=== PATIENT | male | born 1950 | race Two or more races ===

== ENCOUNTER 2016-12-08 10:05 | Day surgery (SDC) | payer BC, OTHER ==
[~2016-12-08] VITALS: Ht 175.3 cm; Wt 88.6 kg
[2016-12-08] MEDS ORDERED: ceFAZolin 2 GM/D5W 50 ML IV BAG (J0690) As Ordered ONE (10:37)
[2016-12-08] MEDS ORDERED: LR 1,000 ML IV SCH ×2 (10:45→13:30)
[2016-12-08] MEDS ORDERED: MIDAZOLAM INJ 2 MG/2 ML VIAL (J2250) As Ordered ONE ×2 (11:02→11:59)
[2016-12-08] MEDS ORDERED: ROCURONIUM BROMIDE 50 MG/5 ML VIAL As Ordered ONE (11:59)
[2016-12-08] MEDS ORDERED: dexameTHASONE 4 MG/ML 1ML VIAL (J1100) As Ordered ONE (11:59)
[2016-12-08] MEDS ORDERED: fentaNYL 250 MCG/5 ML INJECTION (J3010) As Ordered ONE (11:59)
[2016-12-08] MEDS ORDERED: GLYCOPYRROLATE INJ 0.2 MG/ML 2 ML VIAL As Ordered ONE ×2 (11:59→12:00)
[2016-12-08] MEDS ORDERED: LIDOCAINE 2% INJ 100 MG/5 ML SDV (FOR ANES.) As Ordered ONE (11:59)
[2016-12-08] MEDS ORDERED: PROPOFOL 200 MG/20 ML VIAL As Ordered ONE ×2 (11:59→12:28)
[2016-12-08] MEDS ORDERED: NEOSTIGMINE 1MG/ML 5 ML SYRINGE (J2710) As Ordered ONE (12:00)
[2016-12-08] MEDS ORDERED: LIDOCAINE 1% SDV INJ 30 ML VIAL As Ordered ONE (12:16)
[2016-12-08] MEDS ORDERED: BACITRACIN OINT 30GM TOP ONE (12:23)
[2016-12-08] MEDS ORDERED: LIDOCAINE 1% SDV INJ 30 ML VIAL XX ONE (12:24)
[2016-12-08] MEDS ORDERED: BACITRACIN OINT 30GM As Ordered ONE (12:28)
[2016-12-08] MEDS ORDERED: BACITRACIN PWD 50,000 UNITS VIAL As Ordered ONE (12:29)
[2016-12-08] MEDS ORDERED: ACET30TAB PO (12:51)
[2016-12-08] MEDS ORDERED: KETOROLAC 30 MG/ML VIAL (J1885) As Ordered ONE (13:11)
[2016-12-08] MEDS ORDERED: fentaNYL 100 MCG/2 ML INJECTION (J3010) As Ordered ONE (13:14)
[2016-12-08] MEDS: fentaNYL 100 MCG/2 ML INJECTION (J3010) IV PRN ×4 (13:15→13:30)
[2016-12-08] MEDS ORDERED: KETOROLAC 30 MG/ML VIAL (J1885) IV PRN (13:30)
[2016-12-08] MEDS ORDERED: ONDANSETRON 4MG/2ML VIAL (J2405) IV PRN (13:30)
[2016-12-08] MEDS ORDERED: HYDROmorphone HCL 1 MG/ML SYRINGE (J1170) As Ordered ONE (13:38)
[2016-12-08] MEDS: HYDROmorphone HCL 1 MG/ML SYRINGE (J1170) IV PRN ×5 (13:40→14:00)
[2016-12-08] MEDS ORDERED: PERCOCET 5MG/325MG TAB As Ordered ONE (13:53)
[2016-12-08] MEDS ORDERED: PERCOCET 5MG/325MG TAB PO PRN (14:00)
--- NOTE | 2016-12-08 14:23 | REP ---
TRANSRECTAL PROSTATE ULTRASOUND WITH ULTRASOUND GUIDANCE FOR PROSTATE BIOPSY: Real-time sonographic evaluation of prostate performed utilized transrectal probe. Prostate measures 4.2 x 3.1 x 4.4 cm for a total volume of 30.9 mL. There is a hypoechoic nodule in the left apex peripheral zone which appears somewhat suspicious, measuring approximately 1.5 cm in maximum diameter. Ultrasound guidance was provided for Dr. Diggs who performed ultrasound guided biopsy of the prostate. Signed by Jeferson Mcallister MD 12/08/2016 06:32 P
[2016-12-08 16:20] VITALS: BP 167/81
--- NOTE | 2016-12-09 12:07 | RO ---
DATE OF PROCEDURE: 12/08/2016 PREOPERATIVE DIAGNOSIS: Elevated PSA level and left hydrocele. POSTOPERATIVE DIAGNOSIS Elevated PSA level and left hydrocele. PROCEDURE: Left hydrocelectomy and transrectal ultrasound with prostate biopsies. SURGEON: Dr. Mamie Diggs INFORMATION TECHNOLOGY ANALYST: ANESTHESIA: General. MEDICATIONS: Ancef 2 grams preoperatively. SPECIMENS: Prostate tissue from a 12 core biopsy with extra tissue from a left apical nodule and seminal vesicles. FINDINGS: Large left apical hypoechoic lesion seen on ultrasound and a nodule also felt on examination with enlarged seminal vesicles bilaterally. PROCEDURE: The patient was brought into the operating room. Sequential compression devices and thromboembolic deterrent (SELENE) stockings were in place. Preoperative antibiotics had been given. General anesthesia was induced. He was then placed in a left lateral position and a transrectal ultrasound was done. This measured the prostate to be 31 mL. He did have a large left hypoechoic lesion at the left apex. This was also felt on physical examination. At this point, 12 core biopsies were done at the right apex, right mid gland and right base. The same was done on the left. Then an extra biopsy was done of the left nodule at the apex and also through both seminal vesicles since these appeared to be enlarged. At this point, the patient was then placed in the supine position. He was prepped and draped in the usual fashion. Next, an incision was made over the left hemiscrotum down through dartos fascia. Next, tunica vaginalis was seen and this was opened and clear fluid drained. The tunica vaginalis was then opened completely and brought behind the testicle and sewn back together using #2-0 chromic suture. The testicles showed no lesions and the spermatic cord was normal. At this point, using 5 mL of 1% lidocaine, a left spermatic cord block was done. Next, the dartos fascia was closed using a running locking #2-0 chromic suture. Skin was then closed using interrupted #2-0 chromic sutures. Bacitracin was placed on the wound along with fluffs and a scrotal support. The patient was returned to the recovery room in stable condition.
[2017-01-16] MEDS ORDERED: IBUP200C PO (06:39)
[2017-01-17] MEDS ORDERED: TYLE325T5 PO (10:52)
[2017-01-17] MEDS ORDERED: OXYC1TAB23 PO (10:52)
[2017-01-17] MEDS ORDERED: COLA100C PO (10:52)
[2017-01-18] MEDS ORDERED: BACT800T5 PO (13:41)
== END 2017-01-18 15:20 | disposition home or self-care (01) ==
LOC: M SDC 10:05
PROVIDERS: ATTEND Specialist
DX: C61 Malignant neoplasm of prostate (principal); N43.3 Hydrocele, unspecified; N41.1 Chronic prostatitis; R26.89 Other abnormalities of gait and mobility; R73.9 Hyperglycemia, unspecified; M54.9 Dorsalgia, unspecified; I77.9 Disorder of arteries and arterioles, unspecified; F17.210 Nicotine dependence, cigarettes, uncomplicated
CPT/HCPCS: 55040; 55700; 64450; 76872; 88305; G0416; J0690; J1100; J1170; J1885; J2250; J2710; J3010

== ENCOUNTER → 2016-12-27 | Outpatient (CLI) | payer BC, OTHER ==
[~2016-12-27] MED LIST: ACET30TAB PO; ISOVUE-370 76% 100ML VIAL (Q9967) As Ordered ONE
--- NOTE | 2016-12-27 08:50 | REP ---
CT study of the pelvis with IV contrast: History: Carcinoma of the prostate. Comparison CT study is from April 18, 2010 done at [facility]. CT contrast dose: 100 ml of Isovue [address] findings: There is left colonic diverticulosis without CT evidence of diverticulitis. No abdominal wall defect is seen. There is no evidence of pelvic mass or adenopathy. The prostate is somewhat enlarged and contains several dystrophic calcifications. The seminal vesicles are asymmetric with a triangular area of enhancement in the left seminal vesicle approximately 19 mm in diameter. No bony destructive or blastic lesion is seen. There is a small synovial inclusion cyst in the right proximal femur and minimal osteoarthritic changes are seen in the hips along with degenerative changes in the lumbar spine. Impression: Somewhat enlarged prostate containing dystrophic calcifications. Asymmetric enhancing area in the left seminal vesicle raises question of extra prostatic involvement. This was not apparent on previous scan. There is left colonic diverticulosis as well. Signed by Monty Edge MD 12/27/2016 12:24 P
--- NOTE | 2016-12-27 12:55 | REP ---
WHOLE BODY BONE SCAN: Following the intravenous administration of 21.1 mCi of technetium-99m MDP, multiple images are performed, with whole body images in the anterior and posterior projections as well as oblique images of the thoracic and pelvic regions and lateral views of the calvarium. There is a small focus of increased uptake along the right side of the sternum most consistent with a focus in costal cartilage and compatible with focal costochondritis. I do not see compelling scintigraphic evidence of osseous metastases. No other abnormal uptake is seen in the axial or appendicular skeleton. Renal and bladder activity are seen. IMPRESSION: No compelling scintigraphic evidence of osseous metastases. Signed by Jeferson Mcallister MD 12/28/2016 04:36 P
== END ==
LOC: M RAD 07:54
PROVIDERS: ATTEND Urology
DX: C61 Malignant neoplasm of prostate (principal); K57.30 Diverticulosis of large intestine without perforation or abscess without bleeding
CPT/HCPCS: 72193; Q9967

== ENCOUNTER → 2016-12-29 | Outpatient (CLI) | payer BC, OTHER ==
[~2016-12-29] MED LIST changes: -ISOVUE-370 76% 100ML VIAL (Q9967) As Ordered ONE
[2016-12-29 18:27] LABS: INR 1.06
[2016-12-29 19:09] LABS: MEAN CORPUSCULAR HEMOGLOBIN 35.2 pg (27.0-33.0); MEAN CORPUSCULAR HGB CONC 34.2 g/dl (32.0-36.5); MEAN CORPUSCULAR VOLUME 103.2 fl (80.0-96.0); RED CELL DISTRIBUTION WIDTH 11.8 % (11.5-14.5); WHITE BLOOD COUNT 10.3 K/mm3 (4.0-10.0)
[2016-12-29 19:34] LABS: ALBUMIN 3.7 GM/DL (3.2-5.2); ALBUMIN/GLOBULIN RATIO 1.03 (1.00-1.93); ALKALINE PHOSPHATASE 59 U/L (45-117); ALT/SGPT 27 U/L (12-78); ANION GAP 7 MEQ/L (8-16); AST/SGOT 24 U/L (15-37); BILIRUBIN,TOTAL 0.3 MG/DL (0.2-1.0); BLOOD UREA NITROGEN 8 MG/DL (7-18); CALCIUM LEVEL 8.5 MG/DL (8.8-10.2); CARBON DIOXIDE LEVEL 29 MEQ/L (21-32); CHLORIDE LEVEL 103 MEQ/L (98-107); CREATININE FOR GFR 0.91 MG/DL (0.70-1.30); GLOMERULAR FILTRATION RATE > 60.0 (>49); GLUCOSE, FASTING 99 MG/DL (80-110); POTASSIUM SERUM 4.8 MEQ/L (3.5-5.1); SODIUM LEVEL 139 MEQ/L (136-145); TOTAL PROTEIN 7.3 GM/DL (6.4-8.2)
== END ==
LOC: M SMT 15:12
PROVIDERS: ATTEND Urology
DX: Z01.812 Encounter for preprocedural laboratory examination (principal); C61 Malignant neoplasm of prostate

== ENCOUNTER 2017-01-05 12:40 | Inpatient (IN) | payer BC, OTHER ==
[~2017-01-05] VITALS: Ht 180.3 cm; Wt 89.4 kg
[2017-01-16] MEDS ORDERED: LR 1,000 ML IV SCH ×2 (06:30→14:45)
[2017-01-16] MEDS ORDERED: IBUP200C PO (06:39)
[2017-01-16] MEDS ORDERED: METHYLENE BLUE 0.5% (5MG/ML) 10 ML AMP (PROVAYBLUE)(Q9968 PER 1MG) As Ordered ONE (07:12)
[2017-01-16] MEDS ORDERED: LIDOCAINE 1% SDV INJ 30 ML VIAL As Ordered ONE (07:12)
[2017-01-16] MEDS ORDERED: BUPIVACAINE HCL 0.25% 30 ML VIAL As Ordered ONE (07:12)
[2017-01-16] MEDS ORDERED: ROCURONIUM BROMIDE 50 MG/5 ML VIAL As Ordered ONE ×3 (07:14→09:59)
[2017-01-16] MEDS ORDERED: fentaNYL 250 MCG/5 ML INJECTION (J3010) As Ordered ONE (07:14)
[2017-01-16] MEDS ORDERED: LIDOCAINE 2% INJ 100 MG/5 ML SDV (FOR ANES.) As Ordered ONE (07:14)
[2017-01-16] MEDS ORDERED: MIDAZOLAM INJ 2 MG/2 ML VIAL (J2250) As Ordered ONE (07:14)
[2017-01-16] MEDS ORDERED: PROPOFOL 200 MG/20 ML VIAL As Ordered ONE (07:14)
[2017-01-16] MEDS ORDERED: HEPARIN SOD (PORCINE) 5000 UNITS/ML VIAL SQ ONE (07:15)
[2017-01-16] MEDS ORDERED: HEPARIN SOD (PORCINE) 5000 UNITS/ML VIAL As Ordered ONE (07:18)
[2017-01-16] MEDS: NS 1,000 ML IV SCH ×3 (07:36→16:35)
[2017-01-16] MEDS ORDERED: MORPHINE 2 MG/ML 1ML SYRINGE IV PRN (07:45)
[2017-01-16] MEDS ORDERED: ONDANSETRON 4MG/2ML VIAL (J2405) IV PRN ×2 (07:45→15:00)
[2017-01-16] MEDS ORDERED: ACETAMINOPHEN TAB 650MG DOSE (2X325MG) PO PRN (07:45)
[2017-01-16] MEDS ORDERED: HYDROmorphone HCL 2 MG/ML 1ML VIAL (J1170) As Ordered ONE (08:09)
[2017-01-16] MEDS ORDERED: ePHEDrine SULFATE 25 MG/5 ML(5MG/ML) SYRINGE As Ordered ONE (08:19)
[2017-01-16] MEDS ORDERED: GLYCOPYRROLATE INJ 0.2 MG/ML 2 ML VIAL As Ordered ONE (09:26)
[2017-01-16] MEDS ORDERED: NEOSTIGMINE 1MG/ML 5 ML SYRINGE (J2710) As Ordered ONE (09:26)
[2017-01-16] MEDS ORDERED: ONDANSETRON 4MG/2ML VIAL (J2405) As Ordered ONE (09:26)
[2017-01-16 14:29] LABS: MEAN CORPUSCULAR HEMOGLOBIN 35.4 pg (27.0-33.0); MEAN CORPUSCULAR HGB CONC 33.9 g/dl (32.0-36.5); MEAN CORPUSCULAR VOLUME 104.5 fl (80.0-96.0); RED CELL DISTRIBUTION WIDTH 12.2 % (11.5-14.5); WHITE BLOOD COUNT 16.9 K/mm3 (4.0-10.0)
[2017-01-16] MEDS ORDERED: fentaNYL 100 MCG/2 ML INJECTION (J3010) As Ordered ONE (14:41)
[2017-01-16 14:42] LABS: CALCIUM LEVEL 8.3 MG/DL (8.8-10.2); CREATININE FOR GFR 1.37 MG/DL (0.70-1.30); GLOMERULAR FILTRATION RATE 55.7 (>49); POTASSIUM SERUM 4.8 MEQ/L (3.5-5.1)
[2017-01-16] MEDS ORDERED: HYDROmorphone HCL 1 MG/ML SYRINGE (J1170) IV PRN (14:45)
[2017-01-16] MEDS: fentaNYL 100 MCG/2 ML INJECTION (J3010) IV PRN ×4 (14:45→15:31)
[2017-01-16] MEDS: PERCOCET 5MG/325MG TAB PO PRN ×2 (15:10→15:40)
[2017-01-16 16:15] VITALS: BP 144/81
--- NOTE | 2017-01-16 16:33 | ROOPDOC ---
[facility] Report Of Operation Report of Operation DATE OF PROCEDURE: 01/16/2017 PREPROCEDURE DIAGNOSIS: Prostate cancer. POSTPROCEDURE DIAGNOSIS: Prostate cancer. PROCEDURE: Robotic-assisted laparoscopic radical prostatectomy with bilateral pelvic lymph node dissection. SURGEON: Urbano Perales MD MDS NURSE: Yaneth Redmond NP ANESTHESIA: General. OPERATIVE INDICATIONS: This is a 66-year-old male who was diagnosed with clinical stage T2a Sergio 4+[address] prostate cancer with negative CT and bone scans. After a discussion of the different options for treatment, he elected to undergo the above listed procedure. DESCRIPTION OF PROCEDURE: The patient was brought to the operating room where general anesthesia was induced. Prophylactic antibiotics were infused. He was then placed in the dorsal lithotomy position, prepped and draped in the usual sterile fashion. Next, a Champion catheter was inserted into the bladder, and the balloon was filled with 10 mL of sterile water. We then made a midline incision above the umbilicus for 12 mm port. A Veress needle was utilized to achieve pneumoperitoneum. Next, a 12 mm port was inserted through the incision and subsequently the camera was inserted. There were no injuries from the Veress needle or initial trocar placement. The remaining ports were placed in the usual fashion under direct vision in a W configuration. There were three 8 mm robotic ports, as well as another 12 mm senior it assistant port. Once all the ports were placed, the robot was docked. After the robot was docked, we then proceeded to release any adhesions to the sigmoid colon and the abdominal wall. Once that was done, the bladder was dropped and the fat overlying the prostate was cleared using electrocautery. The superficial dorsal vein was controlled with electrocautery. The endopelvic fascia was opened on both sides and the dorsal venous complex was cleared. Next, a #0 Vicryl [id number] stitch was placed around the dorsal venous complex. Once that was done, the bladder was opened. We then began dissecting the bladder neck away from the prostate. I continued to dissect the bladder away from the prostate and then the prostate was lifted up. Both vasa differentia were identified in the midline. They were both carefully dissected and then ligated with Weck clips and then transected. Both seminal vessels were then also dissected until the entire seminal vesicle on each side was lifted up. At this point, bilateral prostatic pedicles were carefully ligated using a Harmonic scalpel. Of note, I did not perform a nerve sparing procedure for this patient as his prostate biopsy was notable for bilateral perineural invasion. Bilateral pedicles were carried towards the apex. After taking care of the pedicles and mobilizing the rectum off the prostate below, the prostate was only connected by the urethra. At this point, the dorsal vein was transected with electrocautery. The urethra was then opened and the catheter was withdrawn and the posterior urethra was transected, thus freeing the prostate. At this point, we checked for hemostasis and it did appear very good. Next, we performed bilateral pelvic lymph node dissection. This was done in a standard fashion. The limits of dissection were the iliac vein proximally, the obturator nerve distally, the pelvic sidewall laterally, and the bladder medially. All lymphatic tissue within these limits was removed. I performed the same procedure on both the right and left sides. Hemostasis was then obtained with a combination of bipolar electrocautery and Weck clips. The lymphatic packets were then placed in separate Endo Catch bags for future retrieval. Once hemostasis was confirmed, I then moved on to the vesicourethral anastomosis. This was performed with a Quill stitch in a running fashion. Once this was done, the final #20-Uzbek Champion catheter was placed. Once the final Champion was placed, the balloon was filled with 15 mL of sterile water. Upon completion of the vesicourethral anastomosis, it was tested by filling the bladder with 120 mL of sterile water. The vesicourethral anastomosis appeared to be watertight. At this point, the prostate and seminal vesicles were placed in an Endo Catch bag for future retrieval. The robot was then undocked. A Cordelia fascial closure device was utilized to place a #0 Vicryl suture through the fascia of the 12 mm senior it assistant port. At this point, a James- Lipscomb drain was brought in through the left robotic port skin site and the drain was positioned anterior to the bladder. The drain was secured to the skin with #3-0 Ethilon suture. Next, all the remaining ports were removed and there did not appear to be any bleeding from any of the port sites. The prostate, as well as the lymph node packets were then extracted from the 12 mm camera port site after the skin and fascia were extended. The fascia in this area was then closed with a running #0 Vicryl stitch. The previously placed #0 Vicryl free ties through the senior it assistant port were then tied down and all incisions were irrigated. Lastly, all of the incisions were closed with running subcuticular #4-0 Monocryl sutures. Local anesthesia was applied. Dermabond was then applied to the incisions. This marked the conclusion of the procedure. The patient was then taken out of the dorsal lithotomy position, awakened from anesthesia and transported to the recovery room in stable condition. ESTIMATED BLOOD LOSS: 300 mL. COMPLICATIONS: None. SPECIMENS: Prostate, right pelvic lymph nodes, left pelvic lymph nodes. PLAN: The patient will be admitted to the hospital postoperatively, and he will likely be discharged home within the next 1-2 days. His catheter will be removed in the next 7-10 days. URBANO PERALES MD Jan 16, 2017 16:33
[2017-01-16] MEDS: ceFAZolin SOD 1 GM in D5W MINI-BAG PLUS 50 ML IV SCH ×2 (16:35→23:07)
[2017-01-16] MEDS: HEPARIN SOD (PORCINE) 5000 UNITS/ML VIAL SC SCH ×2 (16:35→21:07)
[2017-01-16 16:45] VITALS: BP 133/81
[2017-01-16] MEDS: DOCUSATE SODIUM 100 MG CAP PO SCH ×2 (16:50→21:07)
[2017-01-16 17:45] VITALS: BP 157/83
[2017-01-16 18:45] VITALS: BP 137/68
[2017-01-16 22:00] VITALS: BP 150/85
[2017-01-17 02:00] VITALS: BP 123/75
[2017-01-17] MEDS: NS 1,000 ML IV SCH (02:04)
[2017-01-17] MEDS: HEPARIN SOD (PORCINE) 5000 UNITS/ML VIAL SC SCH ×3 (05:08→21:30)
[2017-01-17] MEDS: PERCOCET 5MG/325MG TAB PO PRN ×3 (05:08→20:02)
[2017-01-17 06:00] VITALS: BP 135/69
[2017-01-17 07:09] LABS: MEAN CORPUSCULAR HEMOGLOBIN 35.1 pg (27.0-33.0); MEAN CORPUSCULAR HGB CONC 33.9 g/dl (32.0-36.5); MEAN CORPUSCULAR VOLUME 103.6 fl (80.0-96.0); RED CELL DISTRIBUTION WIDTH 12.4 % (11.5-14.5); WHITE BLOOD COUNT 8.6 K/mm3 (4.0-10.0)
[2017-01-17 07:14] LABS: ANION GAP 5 MEQ/L (8-16); BLOOD UREA NITROGEN 11 MG/DL (7-18); CALCIUM LEVEL 7.4 MG/DL (8.8-10.2); CARBON DIOXIDE LEVEL 28 MEQ/L (21-32); CHLORIDE LEVEL 104 MEQ/L (98-107); CREATININE FOR GFR 1.07 MG/DL (0.70-1.30); GLOMERULAR FILTRATION RATE > 60.0 (>49); GLUCOSE, FASTING 111 MG/DL (80-110); POTASSIUM SERUM 3.9 MEQ/L (3.5-5.1); SODIUM LEVEL 137 MEQ/L (136-145)
[2017-01-17] MEDS ORDERED: PERCOCET 5MG/325MG TAB PO PRN (07:15)
[2017-01-17] MEDS: DOCUSATE SODIUM 100 MG CAP PO SCH ×2 (09:03→20:02)
[2017-01-17 10:00] VITALS: BP 134/79
[2017-01-17] MEDS ORDERED: COLA100C PO (10:52)
[2017-01-17] MEDS ORDERED: OXYC1TAB23 PO (10:52)
[2017-01-17] MEDS ORDERED: TYLE325T5 PO (10:52)
--- NOTE | 2017-01-17 11:01 | IPNPDOC ---
Assessment/Plan Date Seen The patient was seen on 01/17/17. Patient Summary 66 y/o M POD1 s/p RALP w/ BPLND. Doing well. Hb down to 12 this morning. Vitals stable. Excellent UOP. Expected SALVATORE drain output. Plan/VTE VTE Prophylaxis Ordered?: Yes VTE Exclusion Mechanical Proph: N/A:VTE Prophy Ordered VTE Exclusion Pharmacological: N/A:VTE Prophy Ordered Plan/Urinary Catheter Urinary Catheter: Other Catheter: (catheter to stay in place to aid in vesicourethral anatomosis) Plan - d/c IVF - percocet prn pain w/ morphine for breakthrough pain - SQH, SCDs - incentive spirometry - strict I/Os - ambulate - advance diet as tolerated - possible discharge home later today w/ catheter in - SALVATORE will be removed if the output remains low Subjective Review oF Systems Chief Complaint The patient is a 66-year-old male admitted with a reason for visit of Prostate Cancer. Events since Last Encounter No acute events o/n. Good pain control. No n/v. Ambulated a little yesterday. No f/c/ns. Objective Physical Examination General Exam: : Alert: Cooperative ABDOMEN EXAM: : Other (incisions clean/dry/intact; SALVATORE w/ serosanguinous output) : Soft: Tenderness (appropriately tender) Skin Exam: : Nl turgor and temperature Neuro Exam: : Normal Speech Psych Exam: : Mental status NL: Mood NL Other physical findings catheter in place, draining clear urine Vital Signs/I&O Vital Signs Date Time Temp Pulse Resp B/P Pulse Ox O2 Delivery O2 Flow Rate FiO2 01/17/17 06:00 96.8 77 17 135/69 94 Nasal Cannula 2.0 I&O- Last 24 Hours up to 6 AM 01/17/17 06:00 Intake Total 3270 ml Output Total 1905 ml Balance 1365 ml Laboratory Data Labs 24H Laboratory Tests 2 01/16/17 14:05: Anion Gap 7L, Blood Urea Nitrogen 10, Creatinine 1.37H, Sodium Level 137, Potassium Level 4.8, Chloride Level 103, Carbon Dioxide Level 27, Calcium Level 8.3L, Glomerular Filtration Rate 55.7 01/17/17 06:27: Anion Gap 5L, Blood Urea Nitrogen 11, Creatinine 1.07, Sodium Level 137, Potassium Level 3.9, Chloride Level 104, Carbon Dioxide Level 28, Calcium Level 7.4L, Glomerular Filtration Rate > 60.0 CBC/BMP Laboratory Tests 01/16/17 14:05 Calcium Level 8.3 L, Red Blood Count 4.23 L, Mean Corpuscular Volume 104.5 H, Mean Corpuscular Hemoglobin 35.4 H, Mean Corpuscular Hemoglobin Concent 33.9, Red Cell Distribution Width 12.2 01/17/17 06:27 Calcium Level 7.4 L, Red Blood Count 3.47 L, Mean Corpuscular Volume 103.6 H, Mean Corpuscular Hemoglobin 35.1 H, Mean Corpuscular Hemoglobin Concent 33.9, Red Cell Distribution Width 12.4 URBANO PERALES MD Jan 17, 2017 11:01
[2017-01-17 14:00] VITALS: BP 146/83
[2017-01-17 22:00] VITALS: BP 149/87
[2017-01-18 02:00] VITALS: BP 149/86
[2017-01-18] MEDS: HEPARIN SOD (PORCINE) 5000 UNITS/ML VIAL SC SCH ×2 (05:13→14:00)
[2017-01-18 06:00] VITALS: BP 146/78
[2017-01-18 07:10] LABS: MEAN CORPUSCULAR HEMOGLOBIN 34.7 pg (27.0-33.0); MEAN CORPUSCULAR VOLUME 102.3 fl (80.0-96.0); RED CELL DISTRIBUTION WIDTH 11.9 % (11.5-14.5); WHITE BLOOD COUNT 9.5 K/mm3 (4.0-10.0)
[2017-01-18 07:23] LABS: ANION GAP 7 MEQ/L (8-16); BLOOD UREA NITROGEN 8 MG/DL (7-18); CALCIUM LEVEL 8.1 MG/DL (8.8-10.2); CARBON DIOXIDE LEVEL 28 MEQ/L (21-32); CHLORIDE LEVEL 101 MEQ/L (98-107); CREATININE FOR GFR 0.76 MG/DL (0.70-1.30); GLOMERULAR FILTRATION RATE > 60.0 (>49); GLUCOSE, FASTING 104 MG/DL (80-110); POTASSIUM SERUM 3.8 MEQ/L (3.5-5.1); SODIUM LEVEL 136 MEQ/L (136-145)
[2017-01-18] MEDS: DOCUSATE SODIUM 100 MG CAP PO SCH (08:00)
[2017-01-18 08:44] LABS: SOURCE, BODY FLUID CREATININE OTHER
[2017-01-18] MEDS: IPRATROPIUM 0.5MG/ALBUTEROL 2.5MG INH SOL UD 3ML (DUONEB)(J7620) NEB SCH ×2 (08:49→11:29)
--- NOTE | 2017-01-18 08:52 | IPNPDOC ---
Assessment/Plan Date Seen The patient was seen on 01/18/17. Patient Summary 66 y/o M POD2 s/p RALP w/ BPLND. Doing well. Still unable to keep his O2 sat off w/ supplement O2 off. Will get a CXR and resp therapy consult due to rales and wheezing on exam. His labs this morning are stable. SALVATORE Cr was 0.7, consistent w/ serum. Will therefore remove the SALVATORE prior to discharge. Plan/VTE VTE Prophylaxis Ordered?: Yes VTE Exclusion Mechanical Proph: N/A:VTE Prophy Ordered VTE Exclusion Pharmacological: N/A:VTE Prophy Ordered Plan/Urinary Catheter Urinary Catheter: Other Catheter: (catheter to stay in place to aid in vesicourethral anatomosis) Plan - d/c SALVATORE drain - resp therapy consult - CXR - continue to try to wean O2 - if unable to wean off O2, patient will require home O2 - percocet prn pain - strict I/Os - SCDs, SQH - incentive spirometry - plan to discharge home today w/ catheter in place and w/ home O2 if necessary (if CXR looks ok) Subjective Review oF Systems Chief Complaint The patient is a 66-year-old male admitted with a reason for visit of Prostate Cancer. Events since Last Encounter No acute events o/n. Pain is well controlled. No n/v. Ambulating well. Tolerating a regular diet. Passing flatus. Still desaturating off of supplemental O2. Patient denies chest pain or SOB. No f/c/ns. Objective Physical Examination General Exam: : Alert: Cooperative ABDOMEN EXAM: : Other (incisions clean/dry/intact; SALVATORE w/ serosanguinous output) : SoftNo: Hernia, Tenderness Skin Exam: : Nl turgor and temperature Neuro Exam: : Normal Speech Psych Exam: : Mental status NL: Mood NL Other physical findings catheter in place, draining clear urine Vital Signs/I&O Vital Signs Date Time Temp Pulse Resp B/P Pulse Ox O2 Delivery O2 Flow Rate FiO2 01/18/17 06:00 99.3 90 19 146/78 94 Nasal Cannula 2.0 I&O- Last 24 Hours up to 6 AM 01/18/17 06:00 Intake Total 1380 ml Output Total 2035 ml Balance -655 ml Laboratory Data Labs 24H Laboratory Tests 2 01/18/17 06:24: Anion Gap 7L, Blood Urea Nitrogen 8, Creatinine 0.76, Sodium Level 136, Potassium Level 3.8, Chloride Level 101, Carbon Dioxide Level 28, Calcium Level 8.1L, Glomerular Filtration Rate > 60.0 01/18/17 08:06: Body Fluid Creatinine 0.7, Body Fluid Source OTHER CBC/BMP Laboratory Tests 01/18/17 06:24 Calcium Level 8.1 L, Red Blood Count 3.58 L, Mean Corpuscular Volume 102.3 H, Mean Corpuscular Hemoglobin 34.7 H, Mean Corpuscular Hemoglobin Concent 34.0, Red Cell Distribution Width 11.9 URBANO PERALES MD Jan 18, 2017 08:52
--- NOTE | 2017-01-18 09:21 | REP ---
CHEST, TWO VIEWS: HISTORY: Rhonchi. A minimal increase in interstitial markings is present in the lungs. The heart is normal in size. The pulmonary vasculature is normal in appearance. The bony structure is intact. IMPRESSION: There is a minimal increase in interstitial markings in the lungs. This may represent chronic interstitial fibrosis or an acute process such as interstitial edema or pneumonitis. Signed by Serg Lebron MD 01/18/2017 09:24 A
[2017-01-18 10:00] VITALS: BP 141/84
[2017-01-18] MEDS ORDERED: BACT800T5 PO (13:41)
--- NOTE | 2017-01-18 20:16 | DSES ---
DATE OF ADMISSION: 01/16/2017 DATE OF DISCHARGE: 01/18/2017 ADMISSION DIAGNOSIS: Prostate cancer. DISCHARGE DIAGNOSES: Prostate cancer. ADMITTING PHYSICIAN: Zhou Snell MD DISCHARGE PHYSICIAN: Zhou Snell MD PROCEDURES PERFORMED: Robotic-assisted laparoscopic radical prostatectomy, bilateral pelvic lymph node dissection on 01/16/2017. HISTORY OF PRESENT ILLNESS: This is a 66-year-old male with prostate cancer brought to the operating room for the above listed procedure. He was admitted to the hospital postoperatively. HOSPITALIZATION COURSE: The patient was admitted to the hospital after undergoing the above listed procedure. His postoperative course was for the most part unremarkable. His blood work on postoperative days 1 and 2 were stable. His pain was pretty well controlled on both days. The only issue was that his oxygen saturation kept dropping while on room air and therefore we were not able to get him off the supplemental oxygen. By postoperative day 2, he was still having issues with oxygen saturation. A chest x-ray was performed and notable mainly for atelectasis. We did give him a respiratory treatment with DuoNebs and he seemed to respond to that and had improved oxygenation on room air. Of note, his oxygen saturation remained adequate on room air in the mid 90% range, but it did drop to the high 80s after ambulating several feet. When he was not ambulating several feet and at rest he was able to maintain a good oxygen saturation on room air. He was therefore deemed ready for discharge home at this time. The James-Lipscomb drain was removed prior to discharge and his catheter was left in place. We plan to leave it in for 7 to 10 days to allow for healing of his vesicourethral anastomosis. He was therefore discharged home o postoperative day 2 in good condition with catheter in place. He will be brought back to seen in the clinic in approximately one week for catheter removal and to discuss the pathology results. JORDEN
== END 2017-01-18 17:50 | disposition home or self-care (01) | DRG 484 ==
LOC: M OR 01-16 06:15 → M MSPAV 01-16 16:13 → M ED INP 01-18 14:51 → M MSPAV 01-18 15:17
PROVIDERS: ADMIT Urology; ATTEND Urology
PROC: 07BC4ZX Excision of Pelvis Lymphatic, Percutaneous Endoscopic Approach, Diagnostic (ICD-10-PCS; 2017-01-16)
PROC: 8E0W4CZ Robotic Assisted Procedure of Trunk Region, Percutaneous Endoscopic Approach (ICD-10-PCS; 2017-01-16)
PROC: 0VT04ZZ Resection of Prostate, Percutaneous Endoscopic Approach (ICD-10-PCS; principal; 2017-01-16 07:30)
DX: C61 Malignant neoplasm of prostate (principal); J98.11 Atelectasis; F17.210 Nicotine dependence, cigarettes, uncomplicated

== ENCOUNTER → 2017-01-24 | Outpatient (CLI) | payer BC, OTHER ==
[~2017-01-24] MED LIST changes: +BACT800T5 PO; +COLA100C3 PO; +IBUP200C PO; +OXYC1TAB23 PO; +TYLE325T5 PO
[2017-01-24 13:56] LABS: MEAN CORPUSCULAR HEMOGLOBIN 35.4 pg (27.0-33.0); MEAN CORPUSCULAR HGB CONC 34.3 g/dl (32.0-36.5); MEAN CORPUSCULAR VOLUME 103.1 fl (80.0-96.0); RED CELL DISTRIBUTION WIDTH 12.2 % (11.5-14.5); WHITE BLOOD COUNT 13.8 K/mm3 (4.0-10.0)
[2017-01-24 14:01] LABS: ANION GAP 9 MEQ/L (8-16); BLOOD UREA NITROGEN 14 MG/DL (7-18); CALCIUM LEVEL 8.7 MG/DL (8.8-10.2); CARBON DIOXIDE LEVEL 26 MEQ/L (21-32); CHLORIDE LEVEL 94 MEQ/L (98-107); CREATININE FOR GFR 1.17 MG/DL (0.70-1.30); GLOMERULAR FILTRATION RATE > 60.0 (>49); GLUCOSE, FASTING 107 MG/DL (80-110); POTASSIUM SERUM 3.9 MEQ/L (3.5-5.1); SODIUM LEVEL 129 MEQ/L (136-145)
== END ==
LOC: M SMT 09:09
PROVIDERS: ATTEND Urology
DX: Z09 Encounter for follow-up examination after completed treatment for conditions other than malignant neoplasm (principal)

== ENCOUNTER → 2017-02-22 | Outpatient (CLI) | payer BC, OTHER | LOC: M SMT 11:48 | PROVIDERS: ATTEND Urology | DX: C61 Malignant neoplasm of prostate (principal) ==

== ENCOUNTER → 2017-06-21 | Outpatient (CLI) | payer BC, OTHER ==
[~2017-06-21] MED LIST changes: -COLA100C3 PO; +COLA100C5 PO; -IBUP200C PO; +IBUP200C10 PO
--- NOTE | 2017-06-22 13:51 | RADONC ---
RADIATION ONCOLOGY CONSULTATION NOTE DATE: 06/21/2017 CHART NUMBER: [id number] DIAGNOSIS: Prostate cancer. STAGE III, [id number]. ECOG PERFORMANCE STATUS: 0 CONSULTATION NOTE: Mr. Paiz is a very pleasant 66-year-old white male with the diagnosis of a stage III, [id number] moderate to poorly differentiated Lindon score 7 (4-3) adenocarcinoma of the prostate who is presenting to us today status post robotic-assisted laparoscopic radical prostatectomy and bilateral pelvic lymph node dissection for a consideration of postoperative radiation therapy in an attempt to increase the likelihood of achieving local control and cure. HISTORY OF PRESENT ILLNESS: The patient was in his usual state of health but was found to have a rising PSA. On 12/08/2012, the patient underwent a prostatic needle biopsy and pathology revealed a Sergio score 7 (4-3) adenocarcinoma of the prostate involving all but two cores. On 01/16/2017, the patient underwent a laparoscopic robotic-assisted radical prostatectomy and bilateral pelvic lymphadenectomy. Pathology revealed a Lindon score 7 (4-3) adenocarcinoma of the prostate involving approximately 80% of the total gland. The tumor was bilateral and extensive. There was extracapsular extension. There was extensive perineural invasion. The margins of resection were negative. A total of three right sided pelvic lymph nodes were sampled and three left-sided pelvic lymph nodes were sampled and all were negative for malignancy. The patient was followed after surgery with a PSA level of 1.7 on 02/14/2017. It dropped to 1.31 on 02/22/2017 but has since jumped up to 2.13 on 05/28/2017. The patient is now being referred to us for what appears to be a biochemical failure following radical prostatectomy. PAST MEDICAL HISTORY: The patient's past medical history is positive for a perirectal abscess which was surgically repaired. He also had a tonsillectomy in the past. ALLERGIES: The patient has no known drug allergies. SOCIAL HISTORY: The patient has smoked one and a half packs of cigarettes per day for 50 years for a total of a 75 pack-year smoking history. He drinks 16 glasses of beer or hard liquor a day. He does not abuse alcohol. FAMILY HISTORY: The patient's family history is positive for a father with prostate cancer, a sister with breast cancer and a mother with stomach cancer. REVIEW OF SYSTEMS: The patient's review of systems is positive for some difficulty swallowing and depression. He reports physical limitations due to decreased energy. He has shortness of breath as well as dental problems. He urinates five times or more a night. He reports some burning on urination. During the day, he reports he urinates every 5-10 minutes. He has incontinence of urination since surgery. The patient denies nausea, vomiting, fevers, chills, night sweats, diplopia, visual problems, chest pain, rectal bleeding or bone pain. PHYSICAL EXAMINATION: The patient is a well-developed, well-nourished male in no acute distress. HEENT exam is normocephalic, atraumatic. Extraocular movements are intact. There is no palpable cervical, supraclavicular, infraclavicular, axillary, or inguinal lymphadenopathy present. Lungs are clear to auscultation and percussion. Heart has a regular rate and rhythm. Abdomen is benign with no hepatosplenomegaly, masses, or tenderness. Rectal examination reveals a normal anal sphincter tone. His prostate bed is smooth with no evidence of nodularity. Skeletal examination reveals no tenderness to pressure or percussion of the bony skeleton. Extremities reveal no clubbing, cyanosis, or edema. Neurologic exam is grossly intact, as is the remainder of the physical examination. ASSESSMENT: Clearly the patient is a candidate for external beam radiation therapy and I so informed him. I have discussed with the patient in detail the potential benefits as well as possible acute and chronic sequelae of external beam radiation therapy. We discussed logistics of treatment planning, simulation and subsequent fractionated daily radiation treatments. I have scheduled the patient for the next available simulation slot and radiation treatments will begin subsequently. The patient has already initiated hormonal therapy with a recent Lupron shot. Thank you for allowing us to participate in the care of this very pleasant gentleman. We will keep you informed of any new developments as they occur. cc: MD Carie Chapman, DO
--- NOTE | 2017-07-03 10:51 | RADONC ---
RADIATION ONCOLOGY SIMULATION NOTE: DATE: 07/03/2017 CHART NUMBER: SIMULATION NOTE: Mr. Paiz was taken to the CT scan for CT simulation of his prostate bed field. CT was accomplished without difficulty or discomfort. Radiation treatment planning is underway and radiation treatments will begin subsequently. I was physically present throughout the course of CT simulation. An immobilization device was created and will be used throughout the course of treatment.
== END ==
LOC: M ONCR 09:01
PROVIDERS: ATTEND Radiology Radiation Oncology
DX: C61 Malignant neoplasm of prostate (principal)

== ENCOUNTER 2017-07-03 13:58 | Outpatient (RCR) | payer BC, OTHER ==
--- NOTE | 2017-07-16 13:57 | RADONC ---
RADIATION ONCOLOGY PROGRESS NOTE DATE: 07/16/2017 CHART NUMBER: [id number] Mr. Paiz had been scheduled for his port filming today. He was scheduled at 8 this morning. The patient did not come in. We contacted him and have rescheduled him for tomorrow. The patient, therefore, will be coming in for his port films and tattooing tomorrow.
== END 2017-07-21 ==
LOC: M ONCR 13:58
PROVIDERS: ATTEND Radiology Radiation Oncology
DX: C61 Malignant neoplasm of prostate (principal)

== ENCOUNTER → 2017-07-03 | Outpatient (CLI) | payer BC, OTHER ==
[2017-07-03 11:05] LABS: MEAN CORPUSCULAR HEMOGLOBIN 37.5 pg (27.0-33.0); MEAN CORPUSCULAR HGB CONC 35.1 g/dl (32.0-36.5); MEAN CORPUSCULAR VOLUME 106.9 fl (80.0-96.0); RED CELL DISTRIBUTION WIDTH 12.1 % (11.5-14.5); WHITE BLOOD COUNT 8.2 K/mm3 (4.0-10.0)
--- NOTE | 2017-07-03 14:24 | REP ---
Whole body radionuclide bone scan: Comparison is 12/27/2016. Whole-body scanning is performed. Additionally, enlarged views in the oblique projections are performed of the ribs and pelvis. Lateral views of the calvarium are also performed. Imaging is performed after intravenous injection of MDP radiolabeled with 22 mCi of technetium 99m. There is a degenerative pattern of uptake in the shoulders, unchanged. There is a small focus of uptake along the right lateral margin of the sternum as previously likely within costochondral cartilage compatible with costochondritis. There are no other foci of increased uptake. Impression: No evidence of skeletal metastatic disease. Degenerative pattern of uptake in the shoulders. Small focus of uptake in the costochondral cartilage on the right, unchanged, compatible with costochondritis. Signed by Jeferson Lopez MD 07/03/2017 02:15 P
== END ==
LOC: M RAD 09:21
PROVIDERS: ATTEND Radiology Radiation Oncology
DX: C61 Malignant neoplasm of prostate (principal)
CPT/HCPCS: 36415; 78306; 85027; A9503

== ENCOUNTER → 2017-07-05 | Outpatient (REF) | payer OTHER | LOC: M SMT 13:35 | PROVIDERS: ATTEND Urology | DX: R30.0 Dysuria (principal) ==

== ENCOUNTER → 2017-07-05 | Day surgery (SDC) | payer BC, OTHER ==
[~2017-07-05] MED LIST changes: +LIDOCAINE 2% 5ML JELLY UROJET As Ordered ONE; +LIDOCAINE 2% INJ 100 MG/5 ML SDV (FOR ANES.) As Ordered ONE; +LR 1,000 ML IV SCH; +MIDAZOLAM INJ 2 MG/2 ML VIAL (J2250) As Ordered ONE; +ONDANSETRON 4MG/2ML VIAL (J2405) As Ordered ONE; +ONDANSETRON 4MG/2ML VIAL (J2405) IV PRN; +PERCOCET 5MG/325MG TAB PO PRN; +PROPOFOL 200 MG/20 ML VIAL As Ordered ONE; +ceFAZolin 2 GM/D5W 50 ML IV BAG (J0690) As Ordered ONE; +ePHEDrine SULFATE 25 MG/5 ML(5MG/ML) SYRINGE As Ordered ONE; +fentaNYL 100 MCG/2 ML INJECTION (J3010) As Ordered ONE; +fentaNYL 100 MCG/2 ML INJECTION (J3010) IV PRN
[2017-07-05 17:40] VITALS: BP 148/75
--- NOTE | 2017-07-05 17:59 | RO ---
DATE OF PROCEDURE: 07/05/2017 PREOPERATIVE DIAGNOSIS: Bladder neck contracture. POSTOPERATIVE DIAGNOSIS: Bladder neck contracture. OPERATIVE PROCEDURE: Cystoscopy, transurethral direct vision internal urethrotomy, catheter placement over a wire. SURGEON: Zhou Snell MD WIRE COILER MACHINE OPERATOR: None. ANESTHESIA: Monitored anesthesia care (MAC). OPERATIVE INDICATIONS: This 66-year-old male who was seen in the office earlier today for a catheter placement for urinary retention. We could not place a catheter due to a tight bladder neck contracture. He was brought to the operating room today for the above listed procedure. DESCRIPTION OF OPERATION: The patient was brought to the operating room and MAC anesthesia was administered. Prophylactic antibiotics were infused. He was then placed in the dorsal lithotomy position and prepped and draped in the usual sterile fashion. At this point, a resectoscope was inserted through the urethral meatus using the visual obturator. The scope was then advanced up to the area of the bladder neck where the contracture was seen. I then utilized a [place] Knife to incise the bladder neck contracture at 12, 5 and 7-o'clock. Of note there was a very dense contracture and even with incising these areas several times, the bladder neck still did not open up great. I did not want to do too much more given the concern that it will make the patient completely incontinent. I did open it up enough where he should be able to void well and placed a catheter. At this point, a wire was advanced into the bladder. The scope was removed. I then advanced an #18-[place] tip catheter over the wire which went in easily. The balloon was filled with 10 mL of sterile water and then the wire was removed and there was an outflow of urine. The catheter was then connected to gravity drainage. This marked the conclusion of the procedure. The patient was taken out of the dorsal lithotomy position, awakened from anesthesia and transferred to the recovery room in stable condition. ESTIMATED BLOOD LOSS: 5 mL. COMPLICATIONS: None. SPECIMENS: None. PLAN: The patient will followup in the clinic in 7 to 10 days for catheter removal. JORDEN
== END | disposition home or self-care (01) ==
LOC: M SDC 13:44
PROVIDERS: ATTEND Urology
DX: N32.89 Other specified disorders of bladder (principal); C61 Malignant neoplasm of prostate; M12.9 Arthropathy, unspecified; Z72.0 Tobacco use
CPT/HCPCS: 52276; C1769; J0690; J2250; J2405; J3010

== ENCOUNTER 2017-08-22 10:39 | Outpatient (CLI) | payer MEDICARE, BC, OTHER | END 2017-11-14 | LOC: M ONCR 10:39 | DX: C61 Malignant neoplasm of prostate (principal) | CPT/HCPCS: G0463 ==

== ENCOUNTER 2017-08-22 11:03 | Outpatient (RCR) | payer MEDICARE, BC, OTHER ==
[~2017-08-22 11:03] MED LIST changes: -LIDOCAINE 2% 5ML JELLY UROJET As Ordered ONE; -LIDOCAINE 2% INJ 100 MG/5 ML SDV (FOR ANES.) As Ordered ONE; -LR 1,000 ML IV SCH; -MIDAZOLAM INJ 2 MG/2 ML VIAL (J2250) As Ordered ONE; -ONDANSETRON 4MG/2ML VIAL (J2405) As Ordered ONE; -ONDANSETRON 4MG/2ML VIAL (J2405) IV PRN; -PERCOCET 5MG/325MG TAB PO PRN; -PROPOFOL 200 MG/20 ML VIAL As Ordered ONE; -ceFAZolin 2 GM/D5W 50 ML IV BAG (J0690) As Ordered ONE; -ePHEDrine SULFATE 25 MG/5 ML(5MG/ML) SYRINGE As Ordered ONE; -fentaNYL 100 MCG/2 ML INJECTION (J3010) As Ordered ONE; -fentaNYL 100 MCG/2 ML INJECTION (J3010) IV PRN
--- NOTE | 2017-08-29 06:34 | RADONC ---
RADIATION ONCOLOGY PROGRESS NOTE DATE: 08/27/2017 Mr. Paiz is presently at a dose of 2340 cGy to his prostate bed and overall is tolerating treatments fairly well. He continues complain of fatigue and urinary frequency. REVIEW OF SYSTEMS: The patient's review of systems is positive for some fatigue and urinary frequency, but is otherwise noncontributory. Denies nausea, vomiting, fevers, chills, night sweats, diplopia, headaches, anxiety or depression, anorexia, weight loss, visual disturbances, chest pain, urinary or bowel difficulties, bone pain, or neurological problems. PHYSICAL EXAMINATION: The patient's skin is in good condition with no evidence of radiation change present. There is no moist or dry desquamation. The remainder of his physical exam remains unchanged. Mr. Paiz is tolerating treatments quite well and radiation will continue as scheduled.
--- NOTE | 2017-09-03 09:06 | RADONC ---
RADIATION ONCOLOGY PROGRESS NOTE DATE: 09/03/2017 CHART NUMBER: [id number] Mr. Paiz is presently at a dose of 3240 cGy to his prostate bed and is tolerating his treatments fairly well although he complains of frequent urination. The patient's review of systems is positive for frequent urination but is otherwise noncontributory. He denies nausea, vomiting, fevers, chills, night sweats, diplopia, headaches, anxiety or depression, anorexia, weight loss, visual disturbances, chest pain, urinary or bowel difficulties, bone pain, or neurological problems. PHYSICAL EXAMINATION: The patient's skin is in good condition with no evidence of moist or dry desquamation. The remainder of his physical exam remains unchanged. Mr. Paiz is tolerating treatments quite well and radiation will continue as scheduled.
--- NOTE | 2017-09-17 09:47 | RADONC ---
RADIATION ONCOLOGY PROGRESS NOTE: DATE: 09/17/2017 CHART NUMBER: [id number] Mr. Paiz is presently at a dose of 4500 cGy to his prostate bed and is tolerating treatments quite well at this point with no significant complaints related to his radiation therapy. REVIEW OF SYSTEMS: The patient's review of systems is noncontributory. Denies nausea, vomiting, fevers, chills, night sweats, diplopia, headaches, anxiety or depression, anorexia, weight loss, visual disturbances, chest pain, urinary or bowel difficulties, bone pain, or neurological problems. PHYSICAL EXAMINATION: The patient's skin is in good condition with no evidence of moist or dry desquamation. The remainder of his physical exam remains unchanged. Mr. Paiz is tolerating treatments quite well and radiation will continue as scheduled.
== END 2017-09-20 ==
LOC: M ONCR 11:03
PROVIDERS: ATTEND Radiology Radiation Oncology
DX: C61 Malignant neoplasm of prostate (principal)

== ENCOUNTER 2017-09-21 10:52 | Outpatient (RCR) | payer MEDICARE, BC, OTHER | END 2017-10-21 | LOC: M ONCR 10:52 | DX: Z51.89 Encounter for other specified aftercare (principal); C61 Malignant neoplasm of prostate | CPT/HCPCS: 77336 ==

== ENCOUNTER → 2018-05-15 | Outpatient (CLI) | payer MEDICARE, BC, OTHER ==
[2018-05-15 11:31] LABS: APPEARANCE, URINE CLEAR (CLEAR); BACTERIA, URINE AUTO NEGATIVE (NEGATIVE); BILIRUBIN, URINE AUTO NEGATIVE (NEGATIVE); BLOOD, URINE BLOOD 1+ (NEGATIVE); COLOR, URINE STRAW (YELLOW); GLUCOSE, URINE (UA) AUTO NEGATIVE (NEGATIVE); KETONE, URINE AUTO NEGATIVE (NEGATIVE); LEUKOCYTE ESTERASE, URINE AUTO NEGATIVE (NEGATIVE); NITRITE, URINE AUTO NEGATIVE (NEGATIVE); PROTEIN, URINE AUTO NEGATIVE (NEGATIVE); RBC, URINE AUTO 0 /HPF (0-3); SPECIFIC GRAVITY URINE AUTO 1.003 (1.002-1.035); SQUAMOUS EPITHELIAL CELL UR AU 0 /HPF (0-6); UROBILINOGEN, URINE AUTO 0.2 mg/dL (0.0-2.0); WBC, URINE AUTO 0 /HPF (0-3)
== END ==
LOC: M ONCR 08:51
DX: Z08 Encounter for follow-up examination after completed treatment for malignant neoplasm (principal); R35.0 Frequency of micturition; K62.89 Other specified diseases of anus and rectum; Z85.46 Personal history of malignant neoplasm of prostate; Z92.3 Personal history of irradiation
CPT/HCPCS: 81001

== ENCOUNTER → 2025-08-17 | Outpatient (CLI) | payer MEDICARE, BC ==
[~2025-08-17] VITALS: Ht 177.8 cm; Wt 77.0 kg
[~2025-08-17] MED LIST changes: +ACET-716 PO; -ACET30TAB PO; +AMLO1TAB25; +DOXA1TAB42; +FURO20TA2 PO; -IBUP200C10 PO; +IBUP200C25 PO; +LISI20TA33; +MULTTAB20 PO; +PERCOCET PO; +POTA-151 PO; +PRED10PA2 PO; +PRED10TA2 PO; +SENN-186 PO; +VITA100T89 PO; +ZYTI250T PO
[2025-08-17 10:01] VITALS: BP 138/64; O2SAT 96
== END ==
LOC: M PAL 09:47
PROVIDERS: ATTEND Physician Assistant
DX: Z51.5 Encounter for palliative care (principal); C61 Malignant neoplasm of prostate; C79.51 Secondary malignant neoplasm of bone; Z79.891 Long term (current) use of opiate analgesic; Z86.59 Personal history of other mental and behavioral disorders; I10 Essential (primary) hypertension; Z79.899 Other long term (current) drug therapy

== ENCOUNTER 2025-09-03 10:23 | Inpatient (IN) | payer MEDICARE, BC ==
[~2025-09-03] VITALS: Ht 175.3 cm; Wt 75.1 kg
[~2025-09-03 10:23] MED LIST changes: -AMLO1TAB25; +AMLO1TAB25 PO; -DOXA1TAB42; +DOXA1TAB42 PO; -LISI20TA33; +LISI20TA33 PO
[2025-09-03] MEDS ORDERED: ISOVUE-370 76% 100 ML VIAL As Ordered ONE (11:30)
[2025-09-03] MEDS: NS (Normal Saline) 0.9% 1,000 ML IV SCH (11:40)
[2025-09-03] MEDS: KETOROLAC 30 MG/ML 1 ML VIAL IV ONE (11:40)
[2025-09-03 11:51] LABS: BASO # 0.0 10^3/uL (0.0-0.2); BASO % 0.4 % (0.0-1.0); EOS # 0.0 10^3/uL (0.0-0.5); EOS % 0.3 % (0.0-3.0); LYMPH # 0.4 10^3/uL (1.5-5.0); LYMPH % 3.7 % (24.0-44.0); MONO # 0.6 10^3/uL (0.0-0.8); MONO % 5.4 % (2.0-8.0); NEUTROPHILS # 10.2 10^3/uL (1.5-8.5); NEUTROPHILS % 89.8 % (36.0-66.0); PLATELET COUNT, AUTOMATED 362 10^3/uL (150-450)
[2025-09-03 12:22] LABS: ETHYL ALCOHOL (ETHANOL) < 0.003 % (0.000-0.010)
[2025-09-03 12:24] LABS: ALT/SGPT 15 U/L (7.0-40); AST/SGOT 23 U/L (<34); CALCIUM LEVEL 8.2 MG/DL (8.3-10.6); CARBON DIOXIDE LEVEL 26 MMOL/L (20-31); CHLORIDE LEVEL 96 MMOL/L (98-107); CREATININE FOR GFR 1.30 MG/DL (0.70-1.30); GLOMERULAR FILTRATION RATE 58.0 (>42); POTASSIUM SERUM 3.9 MMOL/L (3.5-5.1); SODIUM LEVEL 130 MMOL/L (136-145)
[2025-09-03 12:28] LABS: INR 0.96
[2025-09-03 13:32] LABS: KETONE, URINE AUTO RFX NEGATIVE (NEGATIVE); MUCUS, URINE RFX SMALL (NEGATIVE); RBC, URINE AUTO RFX 117 /HPF (0-3); SQUAM EPITHELIAL CELL UR AURFX 0 /HPF (0-6)
[2025-09-03 13:39] LABS: LEUKOCYTE ESTERASE UR AUTO RFX 2+ (NEGATIVE); NITRITE, URINE AUTO RFX POSITIVE (NEGATIVE); WBC, URINE AUTO RFX TNTC /HPF (0-3)
[2025-09-03] MEDS ORDERED: PERCOCET 5MG/325MG TAB PO PRN (14:25)
[2025-09-03] MEDS ORDERED: ABIR500T PO (14:41)
[2025-09-03 14:44] VITALS: BP 135/62; TEMP 99.4; O2SAT 93
[2025-09-03] MEDS ORDERED: HOME MED LIST COMPLETE! XX SCH (14:45)
[2025-09-03 15:07] LABS: C REACTIVE PROTEIN QUANTITATIV 7.21 MG/DL (<1.0)
[2025-09-03] MEDS: NS (Normal Saline) 0.9% 1,000 ML IV ONE (15:10)
[2025-09-03] MEDS: LIDOCAINE 1% MDV 20 ML VIAL SC STA (17:05)
[2025-09-03] MEDS: cefTRIAXone SOD 1 GM in DEXTROSE 5% (D5W) ADV/MINI-BAG 50 ML IV SCH (17:32)
[2025-09-03 17:36] VITALS: BP 145/68; TEMP 97; O2SAT 96
[2025-09-03] MEDS: NYSTATIN 100,000 UNITS/GM TOPICAL PWD 15 GM TOP SCH (17:51)
[2025-09-03] MEDS: PERCOCET 5MG/325MG TAB PO PRN (18:51)
[2025-09-03 21:07] VITALS: BP 117/58; TEMP 96.7; O2SAT 90
[2025-09-04] MEDS: ACETAMINOPHEN 325 MG TAB PO PRN (03:49)
[2025-09-04 04:59] VITALS: BP 130/59; TEMP 100; O2SAT 90
[2025-09-04 07:15] LABS: BASO # 0.0 10^3/uL (0.0-0.2); BASO % 0.4 % (0.0-1.0); EOS # 0.0 10^3/uL (0.0-0.5); EOS % 0.1 % (0.0-3.0); LYMPH # 0.7 10^3/uL (1.5-5.0); LYMPH % 8.8 % (24.0-44.0); MONO # 0.6 10^3/uL (0.0-0.8); MONO % 8.0 % (2.0-8.0); NEUTROPHILS # 6.4 10^3/uL (1.5-8.5); NEUTROPHILS % 82.1 % (36.0-66.0); PLATELET COUNT, AUTOMATED 316 10^3/uL (150-450)
[2025-09-04 07:42] LABS: ALT/SGPT 20.0 U/L (7.0-40); AST/SGOT 38.0 U/L (<34); CALCIUM LEVEL 7.6 MG/DL (8.3-10.6); CARBON DIOXIDE LEVEL 23.0 MMOL/L (20-31); CHLORIDE LEVEL 101.0 MMOL/L (98-107); CREATININE FOR GFR 1.12 MG/DL (0.70-1.30); GLOMERULAR FILTRATION RATE 69.4 (>42); POTASSIUM SERUM 4.0 MMOL/L (3.5-5.1); SODIUM LEVEL 132.0 MMOL/L (136-145)
[2025-09-04] MEDS ORDERED: PERCOCET 5MG/325MG TAB PO ONE (09:15)
[2025-09-04] MEDS: FLUZONE HIGH DOSE (65+) 0.5 ML SYRINGE (25-26) IM.IMMUN ONE (09:31)
[2025-09-04] MEDS: KETOROLAC 30 MG/ML 1 ML VIAL IV ONE (10:46)
[2025-09-04] MEDS: SENNA 8.6 MG TAB PO SCH (10:47)
[2025-09-04] MEDS: THIAMINE 100 MG TAB PO SCH (10:47)
[2025-09-04] MEDS: predniSONE 10 MG TAB PO SCH (10:47)
[2025-09-04 12:00] VITALS: BP 125/60; TEMP 98; O2SAT 97
[2025-09-04] MEDS: PRENATAL VITAMINS CHEWABLE TABLET PO SCH (12:42)
[2025-09-04] MEDS: cefTRIAXone SOD 2 GM in DEXTROSE 5% (D5W) ADV/MINI-BAG 50 ML IV SCH (15:31)
[2025-09-04 20:00] VITALS: BP 142/63; TEMP 98; O2SAT 96
[2025-09-04] MEDS: DOXAZOSIN MESYLATE 1 MG TAB PO SCH (21:11)
[2025-09-05 03:33] VITALS: BP 138/64; TEMP 97.2; O2SAT 94
[2025-09-05 06:11] LABS: BASO # 0.0 10^3/uL (0.0-0.2); BASO % 0.1 % (0.0-1.0); EOS # 0.0 10^3/uL (0.0-0.5); EOS % 0.1 % (0.0-3.0); LYMPH # 1.0 10^3/uL (1.5-5.0); LYMPH % 13.4 % (24.0-44.0); MONO # 0.9 10^3/uL (0.0-0.8); MONO % 12.1 % (2.0-8.0); NEUTROPHILS # 5.6 10^3/uL (1.5-8.5); NEUTROPHILS % 73.8 % (36.0-66.0); PLATELET COUNT, AUTOMATED 316 10^3/uL (150-450)
[2025-09-05 06:36] LABS: CALCIUM LEVEL 8.0 MG/DL (8.3-10.6); CARBON DIOXIDE LEVEL 24.0 MMOL/L (20-31); CHLORIDE LEVEL 101.0 MMOL/L (98-107); CREATININE FOR GFR 0.95 MG/DL (0.70-1.30); GLOMERULAR FILTRATION RATE 84.5 (>42); POTASSIUM SERUM 4.0 MMOL/L (3.5-5.1); SODIUM LEVEL 132.0 MMOL/L (136-145)
[2025-09-05] MEDS ORDERED: PROHANCE 279.3MG/ML 15ML VIAL As Ordered ONE (10:53)
[2025-09-05 12:00] VITALS: BP 118/56; TEMP 98.6; O2SAT 97
[2025-09-05] MEDS: MORPHINE 4 MG/ML 1 ML VIAL IV PRN (13:23)
[2025-09-05 20:38] VITALS: BP 144/71; TEMP 98.1; O2SAT 94
[2025-09-06 03:35] VITALS: BP 163/72; TEMP 97.9; O2SAT 97
[2025-09-06 06:06] LABS: BASO # 0.0 10^3/uL (0.0-0.2); BASO % 0.1 % (0.0-1.0); EOS # 0.0 10^3/uL (0.0-0.5); EOS % 0.5 % (0.0-3.0); LYMPH # 1.7 10^3/uL (1.5-5.0); LYMPH % 19.5 % (24.0-44.0); MONO # 1.0 10^3/uL (0.0-0.8); MONO % 12.2 % (2.0-8.0); NEUTROPHILS # 5.8 10^3/uL (1.5-8.5); NEUTROPHILS % 67.2 % (36.0-66.0); PLATELET COUNT, AUTOMATED 342 10^3/uL (150-450)
[2025-09-06 06:28] LABS: CALCIUM LEVEL 8.5 MG/DL (8.3-10.6); CARBON DIOXIDE LEVEL 26.0 MMOL/L (20-31); CHLORIDE LEVEL 101.0 MMOL/L (98-107); CREATININE FOR GFR 0.99 MG/DL (0.70-1.30); GLOMERULAR FILTRATION RATE 80.4 (>42); POTASSIUM SERUM 4.0 MMOL/L (3.5-5.1); SODIUM LEVEL 134.0 MMOL/L (136-145)
[2025-09-06] MEDS: PERCOCET 5MG/325MG TAB PO ONE (06:56)
[2025-09-06] MEDS: amLODIPine 10 MG TAB PO SCH (10:05)
[2025-09-06] MEDS ORDERED: NALOXONE INJ 0.4 MG/1 ML VIAL IV PRN (10:05)
[2025-09-06] MEDS: HYDROMORPHONE HCL 0.5 MG/0.5 ML SYRINGE IV ONE (10:17)
[2025-09-06 12:00] VITALS: BP 128/59; TEMP 98.3; O2SAT 96
[2025-09-06] MEDS: MORPHINE SULFATE TAB IMM. REL. 15 MG PO SCH (13:03)
[2025-09-06 21:09] VITALS: BP 148/67; TEMP 98.4; O2SAT 95
[2025-09-06] MEDS: SENNOSIDES/DOCUSATE SODIUM 8.6 MG/50MG TAB PO SCH (22:08)
[2025-09-07 04:02] VITALS: BP 132/61; TEMP 98.2; O2SAT 93
[2025-09-07 07:03] LABS: BASO # 0.0 10^3/uL (0.0-0.2); BASO % 0.2 % (0.0-1.0); EOS # 0.1 10^3/uL (0.0-0.5); EOS % 1.0 % (0.0-3.0); LYMPH # 2.0 10^3/uL (1.5-5.0); LYMPH % 24.2 % (24.0-44.0); MONO # 1.1 10^3/uL (0.0-0.8); MONO % 12.8 % (2.0-8.0); NEUTROPHILS # 5.1 10^3/uL (1.5-8.5); NEUTROPHILS % 61.2 % (36.0-66.0); PLATELET COUNT, AUTOMATED 407 10^3/uL (150-450)
[2025-09-07 07:29] LABS: CALCIUM LEVEL 8.6 MG/DL (8.3-10.6); CARBON DIOXIDE LEVEL 28.0 MMOL/L (20-31); CHLORIDE LEVEL 101.0 MMOL/L (98-107); CREATININE FOR GFR 1.02 MG/DL (0.70-1.30); GLOMERULAR FILTRATION RATE 77.6 (>42); POTASSIUM SERUM 4.3 MMOL/L (3.5-5.1); SODIUM LEVEL 137.0 MMOL/L (136-145)
[2025-09-07] MEDS: NAPROXEN 250 MG TAB PO ONE (10:09)
[2025-09-07 10:43] VITALS: BP 143/65; TEMP 99.2
[2025-09-07] MEDS: IPRATROPIUM 0.5 MG/ALBUTEROL 2.5 MG INH SOL UD 3 ML NEB SCH (11:31)
[2025-09-07 11:47] VITALS: BP 136/62; TEMP 98.1; O2SAT 100
[2025-09-07 21:42] VITALS: BP 160/58; TEMP 97.1; O2SAT 96
[2025-09-07] MEDS: NAPROXEN 250 MG TAB PO SCH (22:05)
[2025-09-08 05:24] VITALS: BP 147/67; TEMP 97.8; O2SAT 95
[2025-09-08 07:01] LABS: BASO # 0.0 10^3/uL (0.0-0.2); BASO % 0.2 % (0.0-1.0); EOS # 0.1 10^3/uL (0.0-0.5); EOS % 0.6 % (0.0-3.0); LYMPH # 2.2 10^3/uL (1.5-5.0); LYMPH % 22.3 % (24.0-44.0); MONO # 1.2 10^3/uL (0.0-0.8); MONO % 11.9 % (2.0-8.0); NEUTROPHILS # 6.4 10^3/uL (1.5-8.5); NEUTROPHILS % 64.4 % (36.0-66.0); PLATELET COUNT, AUTOMATED 454 10^3/uL (150-450)
[2025-09-08 07:23] LABS: CALCIUM LEVEL 8.5 MG/DL (8.3-10.6); CARBON DIOXIDE LEVEL 26.0 MMOL/L (20-31); CHLORIDE LEVEL 101.0 MMOL/L (98-107); CREATININE FOR GFR 1.1 MG/DL (0.70-1.30); GLOMERULAR FILTRATION RATE 70.9 (>42); POTASSIUM SERUM 4.3 MMOL/L (3.5-5.1); SODIUM LEVEL 135.0 MMOL/L (136-145)
[2025-09-08 09:00] VITALS: BP 126/58
[2025-09-08 11:57] VITALS: BP 113/54; TEMP 97.7; O2SAT 92
[2025-09-08] MEDS ORDERED: LEVO75TAB PO (12:49)
[2025-09-08] MEDS ORDERED: MORP15TA2 PO (16:20)
== END 2025-09-08 14:04 | disposition home health service (06) | DRG 853 ==
LOC: M ED 10:23 → M ED INP 14:02 → M MSPAV 14:39
PROVIDERS: ADMIT General Practice; ATTEND Student in an Organized Health Care Education/Training Program
PROC: 0QB23ZX Excision of Right Pelvic Bone, Percutaneous Approach, Diagnostic (ICD-10-PCS; principal; 2025-09-03 15:46)
DX: A41.9 Sepsis, unspecified organism (principal); K65.1 Peritoneal abscess; C79.51 Secondary malignant neoplasm of bone; M86.8X8 Other osteomyelitis, other site; N39.0 Urinary tract infection, site not specified; J44.1 Chronic obstructive pulmonary disease with (acute) exacerbation; R59.0 Localized enlarged lymph nodes; F17.200 Nicotine dependence, unspecified, uncomplicated; F10.10 Alcohol abuse, uncomplicated; I10 Essential (primary) hypertension; H91.93 Unspecified hearing loss, bilateral; F03.90 Unspecified dementia, unspecified severity, without behavioral disturbance, psychotic disturbance, mood disturbance, and anxiety; B96.20 Unspecified Escherichia coli [E. coli] as the cause of diseases classified elsewhere; K43.9 Ventral hernia without obstruction or gangrene; Z66 Do not resuscitate; Z92.3 Personal history of irradiation; Z79.52 Long term (current) use of systemic steroids; Z79.899 Other long term (current) drug therapy; Z79.891 Long term (current) use of opiate analgesic

== ENCOUNTER → 2025-09-15 | Outpatient (CLI) | payer MEDICARE, BC ==
[~2025-09-15] MED LIST changes: +ABIR500T PO; +LEVO75TAB PO; +MIRA3350 PO; +MORP15TA2 PO; +OXYC10TA12 PO
== END ==
LOC: M PAL 12:58
PROVIDERS: ATTEND Physician Assistant
DX: Z51.5 Encounter for palliative care (principal); Z66 Do not resuscitate; C61 Malignant neoplasm of prostate; C79.51 Secondary malignant neoplasm of bone; Z79.891 Long term (current) use of opiate analgesic; Z92.21 Personal history of antineoplastic chemotherapy

== ENCOUNTER → 2025-09-21 | Outpatient (CLI) | payer MEDICARE, BC | LOC: M PAL 10:47 | PROVIDERS: ATTEND Physician Assistant | DX: Z51.5 Encounter for palliative care (principal); Z66 Do not resuscitate; C61 Malignant neoplasm of prostate; C79.51 Secondary malignant neoplasm of bone; Z79.891 Long term (current) use of opiate analgesic; Z79.899 Other long term (current) drug therapy; Z79.52 Long term (current) use of systemic steroids ==

== ENCOUNTER → 2025-10-05 | Outpatient (CLI) | payer MEDICARE, BC ==
[~2025-10-05] MED LIST changes: +MORP30TASA PO
== END ==
LOC: M PAL 10:57
PROVIDERS: ATTEND Physician Assistant
DX: Z51.5 Encounter for palliative care (principal); Z66 Do not resuscitate; C61 Malignant neoplasm of prostate; C79.51 Secondary malignant neoplasm of bone; Z79.891 Long term (current) use of opiate analgesic; Z79.899 Other long term (current) drug therapy; Z79.52 Long term (current) use of systemic steroids